=== PATIENT | male | born 1990 | race Caucasian/White ===

== ENCOUNTER 2022-09-11 12:47 | Emergency (ER) | payer OTHER, SELFPAY ==
[2022-09-11 12:49] VITALS: BP 109/68; PULSE 91; RESP 14; TEMP 36.6; O2SAT 98; BMI 22.2
--- NOTE | 2022-09-11 13:11 | CT_ITS ---
STUDY: CT ABDOMEN AND PELVIS WITH CONTRAST - URINARY TRACT REASON FOR EXAM: Male, 31 years old. RLQ pain -- IV PO Contrast RADIATION DOSAGE (If Supplied By Facility): CTDIvol = ( 9.85 ) mGy, DLP = ( 481.51 ) mGycm TECHNIQUE: IV 100mL Isovue-300 was administered. Transaxial images were obtained from the dome of the diaphragm to the symphysis pubis in the arterial, nephrographic and excretory phases. Multiplanar coronal and sagittal images were reformatted. Individualized Dose Optimization Techniques Were Used For This CT. COMPARISON: None. FINDINGS: The visualized lung bases are unremarkable. The visualized portions of the heart are within normal limits. The right lobe of the liver is 19 cm in height. A small, ill-defined zone of decreased enhancement in the anterior left lobe along the falciform ligament is consistent with focal fatty infiltration. The patent portal vein diameter is 17 mm. Normal gallbladder and extrahepatic biliary system. Normal spleen. Normal pancreas. Normal bilateral adrenal glands. Normal visualized stomach. Mural thickening versus peristalsis is questioned in a segment of distal small bowel, 10-11 cm from the ileocecal junction (series 2 image 78, series 601 images 50-60) with some borderline stranding in the adjacent mesentery. Otherwise, normal small intestine. Normal colon. What may be the unopacified appendix (series 601 images 29-39) is visualized and appears normal. Normal abdominal aorta. No retroperitoneal adenopathy. Normal right kidney. Normal left kidney. Normal urinary bladder. The prostate gland is normal. Normal abdominal wall. Minor anterior wedging of the L1 vertebra, likely chronic/developmental, as well as minor degenerative changes near the thoracolumbar junction and upper to mid lumbar spine. CT/Abdomen/Pelvis WITH Contrast IMPRESSION: Short segment mural thickening versus peristalsis in distal small bowel in the right lower quadrant with some borderline stranding in the adjacent mesentery. The bowel and remaining abdomen are otherwise unremarkable. Electronically Signed: Germán Byers MD at 15:29 EDT Reading Location ID and State: [id number] / Unknown , Service support ,
--- NOTE | 2022-09-11 13:11 | EX.ED.DYSGE1 ---
HPI History of Present Illness Chief Complaint: Abd Pain Informant: patient Onset/Context/Timing Onset: Days Context: Gradual Onset Current Severity: Mild Maximum Severity: Moderate Narrative Narrative: Patient presents with right lower quadrant abdominal pain. He states over the weekend he had mild pressure in the right lower quadrant. He did not have much of an appetite and had some slight chills. Pain slightly worsened today. He presented to a local urgent care and was sent here to evaluate for appendicitis. He does note increased pain when he was riding in the car and hitting bumps. He is urinating without difficulty. He states he has had loose stool and does note some increased pressure with bowel movement. PFSH PFSH Medical History no medical history no medical history Home Medications No Known/Unobtainable [No Known Home Medications] 05/15/16 [History Last Taken Unknown] Allergy/AdvReac Type Severity Reaction Status Date / Time Penicillins Allergy Hives Verified 09/11/22 12:48 Family History no significant family his no significant family history Surgical History no surgical history no surgical history Social History Smoking Status: Never smoker ROS ROS ED Constitutional Constitutional ED: Reports chills; Denies fever(s) Eyes Eyes: Denies change in vision or discharge from eye(s) ENT ENT ED: Denies discharge from eye(s), rhinorrhea or sore throat Cardiovascular Cardiovascular: Denies chest pain or palpitations Respiratory/Chest Respiratory/Chest: Denies cough or dyspnea Gastrointestinal Gastrointestinal: Reports abdominal pain and diarrhea; Denies nausea or vomiting Genitourinary Genitourinary ED: Denies dysuria Musculoskeletal Musculoskeletal: Denies back pain or extremity pain Integumentary Denies Abrasions or rash Neurologic Neurologic: Denies headache(s) or weakness Allergic/Immunologic Allergic/Immunologic ED: Denies lip swelling or urticaria EXAM Physical Exam Const Vital Signs: 09/11/22 12:49 Temperature 98 F Temperature Source Temporal Pulse Rate 91 Respiratory Rate 14 Blood Pressure 109/68 Blood Pressure Mean 81 Pulse Ox 98 Oxygen Delivery Method Room Air Positive well nourished and well developed General Appearance ED: well developed HEENT Reports normocephalic and head/scalp atraumatic Eyes PERRL and EOMs intact bilaterally Neck supple Chest Wall inspection of chest normal and palpation of chest normal Resp normal respiratory effort and clear to auscultation bilaterally Cardio regular rate and regular rhythm GI GI Narrative: Right lower quadrant tenderness to palpation. No guarding or rebound. Hypoactive bowel sounds. Palpation: soft Extremity normal to inspection Neuro oriented x3 and no sensory deficits noted Sensorium / Orientation: alert Motor Exam: strength 5/5 throughout Psych mental status grossly normal Skin no rashes or lesions noted MDM MDM MDM Narrative Medical decision making narrative: Patient declined pain medication at this time. Labwork obtained to evaluate for leukocytosis, anemia, and electrolyte derangement. CT scan of the abdomen and pelvis with IV and p.o. contrast obtained to evaluate for possible appendicitis. Lab Data Attestation: I reviewed the patient's lab results. Labs: Laboratory Results - last 24 hr 09/11/22 09/11/22 13:20 14:59 WBC 13.0 H RBC 4.38 L Hgb 13.5 Hct 40.1 MCV 91.6 MCH 30.8 MCHC 33.7 RDW Std Deviation 41.9 RDW Coeff of [place] 12.6 Plt Count 246 MPV 9.4 Immature Gran % (Auto) 0.600 Neut % (Auto) 83.8 H Lymph % (Auto) 6.9 L Wilkes % (Auto) 8.1 Eos % (Auto) 0.2 Baso % (Auto) 0.4 Absolute Neuts (auto) 10.9 H Absolute Lymphs (auto) 0.90 Nucleated RBC % 0 Sodium 137 Potassium 3.6 Chloride 104 Carbon Dioxide 29.0 Anion Gap 4 L BUN 8 Creatinine 1.01 Estim Creat Clear Calc 109.36 Est GFR (MDRD) Af Amer 111 Est GFR (MDRD) Non-Af 92 BUN/Creatinine Ratio 7.9 L Glucose 103 Calcium 8.5 Urine Color Straw Urine Clarity Clear Urine pH 7.0 Ur Specific [place] 1.005 Urine Protein Negative Urine Glucose (UA) Normal Urine Ketones Negative Urine Occult Blood Negative Urine Nitrite Negative Urine Bilirubin Negative Urine Urobilinogen Normal Ur Leukocyte Esterase Negative Urine RBC 0 SEEN Urine WBC 0 SEEN Ur Squamous Epith Cells 0 SEEN Urine Bacteria 0 SEEN Urine Mucus 0 SEEN Radiography Diagnostic Testing: Clinical Impression(s) from Imaging Studies Abdomen/Pelvis CT 09/11/22 13:11 IMPRESSION: Short segment mural thickening versus peristalsis in distal small bowel in the right lower quadrant with some borderline stranding in the adjacent mesentery. The bowel and remaining abdomen are otherwise unremarkable. Electronically Signed: Germán Byers MD at 15:29 EDT Reading Location ID and State: [id number] / Unknown , Service support , Treatment and Re-Evaluation :: White blood cell count is elevated at 13.0 with 83% neutrophils. Chemistry studies are unremarkable. Urinalysis reveals no evidence of infection. CT scan of the abdomen pelvis reveals a short segment of the small bowel with possible mural thickening versus peristalsis. There is some borderline stranding adjacent to this. What appears to be an unopacified appendix is visualized and is normal. No other acute abnormalities noted. Test results discussed with the patient. He will continue supportive care and return instructions been provided. Discharge Plan Triage Chief Complaint: Abd Pain ED Provider: Elana Sirera Dx/Rx/DC Orders Clinical Impression: Ileitis Instructions: ED Gastroenteritis, Noninfectious Prescriptions: No Action No Known Home Medications Primary Care Provider: Care Physician,No Primary Referrals: Homar Dickson MD [Med Staff - Patient Portal Representative] - As Needed Care Physician,No Primary [Primary Care Provider] - Disposition Disposition: Home, Self Care
[2022-09-11 13:29] LABS: Absolute Neutrophil Count 10.9 X10^3/uL (2.0-7.7); Basophil# 0.05 X10^3/uL; Basophil% 0.4 % (0-1); Eosinophil# 0.03 X10^3/uL; Eosinophils% 0.2 % (0-5); Hematocrit 40.1 % (40-54); Hemoglobin 13.5 g/dL (13.0-16.5); Lymphocyte % 6.9 % (19-41); Mean Corp Hgb Conc 33.7 g/dL (32-36); Mean Corpuscular Hgb 30.8 pg (27.0-32.0); Mean Corpuscular Volume 91.6 fL (80-94); Mean Platelet Vol. 9.4 fl (6.2-12.0); Monocyte# 1.05 X10^3/uL; Monocyte% 8.1 % (0-10); NRBC Flagged by Analyzer 0 % (0-5); Neutrophil # 10.85 X10^3/uL (2.7-7.7); Neutrophil % 83.8 % (47-70); Platelet Count 246 K/mm3 (150-450); RBC Distribution Width CV 12.6 % (11.6-14.6); RBC Distribution Width SD 41.9 fl (35.1-43.9); Red Blood Count 4.38 M/mm3 (4.6-6.2)
[2022-09-11] MEDS: 0.9% Normal Saline 1,000 ML 150 ML IV (13:29)
[2022-09-11] MEDS: Contrast Allergy Safety Check IV (13:29)
[2022-09-11 13:45] LABS: Anion Gap 4 (5-15); BUN 8 mg/dL (7-18); BUN/Creat Ratio 7.9 RATIO (10-20); Calcium,Total 8.5 mg/dL (8.5-10.1); Chloride 104 mmol/L (98-107); Creatinine, Serum 1.01 mg/dL (0.70-1.30); EST Glomerular Filtration Rate 92 mL/min (>60); Est Glom Filt Rate - Afr Amer 111 mL/min (>60); Estimated Creatinine Clearance 109.36 ml/min; Glucose 103 mg/dL (74-106); Potassium 3.6 mmol/L (3.5-5.1); Sodium Level 137 mmol/L (136-145)
[2022-09-11 15:03] LABS: Bacteria 0 SEEN /hpf (None Seen); Mucous, Urine 0 SEEN /hpf (<or=2+); Red Blood Cells-Urine 0 SEEN /hpf (0-5); Squamous Epithelial Cells - UA 0 SEEN /hpf (0-5); White Blood Cells 0 SEEN /hpf (0-5)
[2022-09-11 15:10] LABS: Color, Urine Straw (Yellow); Glucose, Dipstick Normal (Normal); Ketone-Dipstick Negative (Negative); Leukocyte Esterase-Dipstick Negative /ul (Negative); Nitrite-Dipstick Negative (Negative); Occult Blood-Urine Negative /ul (Negative); Protein-Dipstick Negative (Negative); Specific Gravity, Urine 1.005 (1.002-1.030); Urine Bilirubin Dipstick Negative (Negative); Urine Clarity Clear (Clear); Urine Urobilinogen Normal (Normal)
[2022-09-11 15:33] VITALS: BP 110/64; PULSE 68; RESP 16; O2SAT 99
== END 2022-09-11 15:48 | disposition home or self-care (01) ==
PROVIDERS: Emergency Provider Emergency Medicine; Visit Provider Emergency Medicine
DX: K52.9 Noninfective gastroenteritis and colitis, unspecified (principal)
CPT/HCPCS: 74177; 80048; 81001; 85025; 96360; 96361; 99283; J7030; Q9967; A4216

== ENCOUNTER 2022-11-14 10:08 | Emergency (ER) | payer OTHER, SELFPAY ==
[2022-11-14 10:09] VITALS: BP 132/94; PULSE 63; RESP 18; TEMP 36.5; O2SAT 100
--- NOTE | 2022-11-14 10:12 | EDS_ITS ---
HPI History of Present Illness Chief Complaint: Laceration [facility] PFS Medical History no medical history Home Medications cephalexin 500 mg capsule 500 mg PO Q6 7 days #28 CAPSULES 11/14/22 [Rx Last Taken Unknown] Allergy/AdvReac Type Severity Reaction Status Date / Time Penicillins Allergy Hives Verified 11/14/22 10:09 Social History Smoking Status: Never smoker EXAM Physical Exam Const Vital Signs: 11/14/22 10:09 Temperature 97.7 F L Temperature Source Temporal Pulse Rate 63 Respiratory Rate 18 Blood Pressure 132/94 H Blood Pressure Mean 106 Pulse Ox 100 Oxygen Delivery Method Room Air MDM MDM MDM Narrative Medical decision making narrative: HISTORY OF PRESENT ILLNESS: 32-year-old male here with right fourth digit laceration. REVIEW OF SYSTEMS: Pertinent positives: Finger laceration Pertinent negatives: Numbness, tingling PHYSICAL EXAM: Nursing triage notes reviewed, Vital signs reviewed Constitutional: please see mdm Extremities: Intact tenderness involved in the flexor digitorum superficialis and profundus on the right finger Neuro: Intact 5/5 strength with ok sign (median), intact finger abduction (ulnar) intact wrist extension (radial n). Intact sensation in the radial, ulnar, and median nerve distributions. Skin: Abrasion noted to the right third digit, laceration approximately 2 cm in length is curvilinear going to the palmar surface around medially to the dorsal surface of the right distal fourth digit, oozing blood noted, obvious bone showing MEDICAL DECISION MAKING: Chief Complaint: Hand laceration External records reviewed: Last ED visit 2017 for leg laceration Consults: Orthopedic hand surgery ALL IMAGES (IF OBTAINED) HAVE BEEN PERSONALLY REVIEWED AND INTERPRETED BY MYSELF. X-ray of the right hand was read reviewed by myself shows evidence of a distal avulsion fracture Of the fourth distal phalanx. MDM Narrative: The patient suffered lacerations to the right third and fourth digits. On exam there was no evidence of foreign bodies. There was no evidence of neurovascular injury. Patient had a normal distal vascular exam, and had intact ROM and sensation. There was also no evidence of tendon injury, with normal distal full range of motion with finger flexion, extension, abduction, abduction. There is no evidence of local joint space involvement at this time. Wound care applied (irrigation and/or local cleansing solution). Patient was soaked in chlorhexidine and sterile saline for approximately 4 hours. Laceratio n repair was then performed please see procedure note. I gave p.o. Keflex here and for home-going. I gave occupational health follow-up. The patient was given signs and symptoms warnings for infection, such as increasing pain, redness, swelling, associated heat, pus or feve it is important. The patient return if these signs develop. Hand surgery follow up also arranged. Patient agreed with the plan of care Procedure: Laceration repair. The procedure was performed by myself. Indication: Wound repair Risks and benefits: risks, benefits and alternatives were discussed Consent: Consent was obtained. Wound Details: Right fourth digit, 2 cm in length, 1 mm in depth, no foreign bodies, distal phalanx bone exposed. Anesthesia: Digital block of the third and fourth digit of the right hand] (verbal consent obtained from patient). Wound prep: Patient was prepped and draped in the usual sterile fashion. Tetanus: Last tetanus updated 2017 Irrigation Solution: Saline Wound Preparation: soaked for 4 hours The wound was explored to its base in a bloodless field. Procedure Description: Running repair of palmar surface suture with approximatel y 5, 5-0 Vicryl (absorbable sutures) Patient tolerated the procedure well with no immediate complications The patient and/or family, caregivers express understanding. The patient and/or family, caregivers agrees with the plan. Shared decision making: I will have a discussion with the patient and or visitors regarding risk/benefits of further testing or admission. They will be made aware of of the risk/benefits inherent in this decision they will be given the opportunity to voice understanding. Total critical care time today provided was at least 0 minutes. This excludes separately billable procedures. Critical care time (if documented) is secondary to the patient having high probability of clinically significant/life threatening deterioration in the patient's condition which required my urgent intervention. Impression: 1. Finger laceration 2. Open fracture 3. Distal finger avulsion fracture Dispo: Discharge Radiography Diagnostic Testing: Clinical Impression(s) from Imaging Studies Hand X-Ray 11/14/22 14:15 IMPRESSION: Soft tissue laceration and soft tissue amputation overlying the distal phalanx of the fourth digit along the radial aspect with evidence of the avulsion of the lateral aspect of the distal phalanx. Electronically Signed: John Segovia MD at 15:04 EDT , Discharge Plan Triage Chief Complaint: Laceration ED Provider: Shahram Paulson Dx/Rx/DC Orders Instructions: ED Laceration Hand with ... Prescriptions: New cephalexin 500 mg capsule 500 mg PO Q6 7 Days Qty: 28 0RF Stand Alone Forms: ED Work / School Excuse Primary Care Provider: Care Physician,No Primary Referrals: [facility] [Non-Staff] - Activity Restrictions/Additional Instructions: Please Follow-up with Dr. Gumaro Sweeney (hand surgeon) if needed at the following Hand and Upper Extremity [address] [place] [address] [address] [place] [address] Thank you for trusting us with your care today! Please take Tylenol (2 pills, 650 mg), ibuprofen (2 pills, 400 mg) every 6 hours as needed for pain and fever control. Please take Keflex daily for the next 7 days. Please complete entire course of antibiotics Please return to the emergency department if your symptoms change or worsen. Specifically develop redness, increasing pain, white-yellow discharge. These are signs of infection require immediate evaluation in the emergency department Please follow with your primary care physician for further outpatient evaluation and management. Disposition Disposition: Home, Self Care
--- NOTE | 2022-11-14 12:13 | CM.ED ---
Social Work Note Referral Source: case find Referral Reason: no PCP SW met with patient and introduced herself and role as [facility] Sales Clerk Supervisor. Patient seated on hospital bed and agreeable to speak with SW. SW inquired about patient's insurance and current PCP. Patient verified insurance and reports no current PCP. SW provided patient with a list of local PCPs in network with patient's insurance and accepting new patients. Patient was receptive towards list and voiced no other needs. SW remains available if needs arise. Lissette Prieto MSW, JEZ
--- NOTE | 2022-11-14 14:15 | RAD_ITS ---
STUDY: X-RAY - RIGHT HAND REASON FOR EXAM: Male, 32 years old. Laceration following trauma. TECHNIQUE: 3 view(s) of the hand. COMPARISON: None. FINDINGS: Normal radiocarpal articulation. Normal distal radioulnar joint. Normal visualized carpal bones. Normal carpal articulations Normal carpometacarpal articulation of the thumb. Normal second through fifth carpometacarpal joints. Normal metacarpi. Normal metacarpophalangeal joint of the thumb. Normal interphalangeal joint of the thumb. Normal proximal and distal phalanges of the thumb. Normal metacarpophalangeal joints of the second through fifth fingers. Soft tissue laceration and partial amputation of the soft tissues along the radial aspect of the fourth digit overlying the distal phalanx with findings suggestive of an avulsion fracture. Normal phalanges of the second through fifth fingers. RAD/Hand Min 3 Views IMPRESSION: Soft tissue laceration and soft tissue amputation overlying the distal phalanx of the fourth digit along the radial aspect with evidence of the avulsion of the lateral aspect of the distal phalanx. Electronically Signed: John Segovia MD at 15:04 EDT ,
[2022-11-14] MEDS: Cephalexin 250 MG Capsule 500 MG PO (14:44)
[2022-11-14] MEDS: Lidocaine 1% (20 ml mdv) 20 ML Vial 5 ML INFILT (14:44)
== END 2022-11-14 15:32 | disposition home or self-care (01) ==
PROVIDERS: Emergency Provider Emergency Medicine; Visit Provider Emergency Medicine
DX: S62.634B Displaced fracture of distal phalanx of right ring finger, initial encounter for open fracture (principal); X58.XXXA Exposure to other specified factors, initial encounter
CPT/HCPCS: 12001; 73130; 99284

== ENCOUNTER → 2023-08-06 | Outpatient (CLI) | payer OTHER, SELFPAY ==
[2023-08-06 17:31] LABS: Absolute Lymphocyte Count 2.49 X10^3/uL (0.83-4.51); Absolute Neutrophil Count 4.6 X10^3/uL (2.0-7.7); Basophil# 0.09 X10^3/uL; Basophil% 1.1 % (0-1); Eosinophil# 0.08 X10^3/uL; Hematocrit 43.9 % (40-54); Hemoglobin 14.7 g/dL (13.0-16.5); Lymphocyte # 2.49 X10^3/ul (0.83-4.51); Lymphocyte % 31.8 % (19-41); Mean Corp Hgb Conc 33.5 g/dL (32-36); Mean Corpuscular Hgb 30.8 pg (27.0-32.0); Mean Corpuscular Volume 91.8 fL (80-94); Mean Platelet Vol. 9.5 fl (6.2-12.0); Monocyte# 0.53 X10^3/uL; Monocyte% 6.8 % (0-10); NRBC Flagged by Analyzer 0 % (0-5); Neutrophil # 4.64 X10^3/uL (2.7-7.7); Neutrophil % 59.2 % (47-70); Platelet Count 311 K/mm3 (150-450); RBC Distribution Width CV 12.8 % (11.6-14.6); RBC Distribution Width SD 43.5 fl (35.1-43.9); Red Blood Count 4.78 M/mm3 (4.6-6.2); White Blood Count 7.8 K/mm3 (4.4-11.0)
[2023-08-06 18:02] LABS: Cholesterol 146 mg/dL (200); Creatinine, Serum 0.96 mg/dL (0.70-1.30); EST Glomerular Filtration Rate 97 mL/min (>60); Est Glom Filt Rate - Afr Amer 117 mL/min (>60); High Density Lipoprotein 70 mg/dL
== END | disposition home or self-care (01) ==
PROVIDERS: PCP Family Medicine; Referring Provider Family Medicine; Visit Provider Family Medicine
DX: E78.9 Disorder of lipoprotein metabolism, unspecified (principal); D18.01 Hemangioma of skin and subcutaneous tissue
CPT/HCPCS: 36415; 82465; 82565; 83718; 85025